=== PATIENT | female | born 1980 | race Two or more races ===

== ENCOUNTER 2018-05-06 06:11 | Inpatient (IN) | payer OTHER ==
[~2018-05-06] VITALS: Ht 167.6 cm; Wt 101.2 kg
[~2018-05-06 06:11] MED LIST: LEVOXYL150 MCG PO
[2018-05-06] MEDS ORDERED: LEVOXYL175 MCG PO (09:26)
[2018-05-06] MEDS ORDERED: PRENATAL FORMU1 EAC1 PO (09:27)
== END 2018-05-08 13:33 | DRG 775 ==
LOC: LDR 06:11 → OB/GYN 06:11
PROC: 10E0XZZ Delivery of Products of Conception, External Approach (ICD-10-PCS; principal; 2018-05-06)
PROC: 4A1HXCZ Monitoring of Products of Conception, Cardiac Rate, External Approach (ICD-10-PCS; 2018-05-06)
PROC: 4A033R1 Measurement of Arterial Saturation, Peripheral, Percutaneous Approach (ICD-10-PCS; 2018-05-06)
DX: O80 Encounter for full-term uncomplicated delivery (principal); Z3A.40 40 weeks gestation of pregnancy; Z37.0 Single live birth